=== PATIENT | female | born 1990 | race African-American/Black ===

== ENCOUNTER 2016-08-23 05:31 | Emergency (ER) | payer OTHER | END 2016-08-23 06:15 | disposition home or self-care (01) | LOC: CED 05:31 | DX: S16.1XXA Strain of muscle, fascia and tendon at neck level, initial encounter (principal); M25.511 Pain in right shoulder; E11.9 Type 2 diabetes mellitus without complications; F17.200 Nicotine dependence, unspecified, uncomplicated; V43.52XA Car driver injured in collision with other type car in traffic accident, initial encounter | CPT/HCPCS: 99283 ==